=== PATIENT | male | born 1955 | race Caucasian/White ===

== ENCOUNTER 2016-08-19 17:24 | Inpatient (IN) | payer BC ==
[2016-08-19] MEDS ORDERED: NORCO 7.5/325 MG TAB PO PRN (18:20)
[2016-08-19] MEDS ORDERED: HumuLIN R SUBCUT PRN (18:20)
[2016-08-19] MEDS ORDERED: XANAX PO PRN (18:20)
--- NOTE | 2016-08-19 18:27 | DR.H&P ---
H&P - History & Physical for Day of: H&P Date: 08/19/16 - Chief Complaint Chief Complaint: INTRACTABLE BACK PAIN, LEFT LEG NUMBNESS, URINARY INCONTINENCE - Allergies Allergies/Adverse Reactions: Allergies Allergy/AdvReac Type Severity Reaction Status Date / Time No Known Drug Allergy Allergy Verified 08/19/16 18:17 - History of Present Illness History of Present Illness: 60 WM DIRECT ADMIT FROM DR RITTER OFFICE AFTER PRESENTING WITH CO LLE NUMBNESS AND URINARY INCONTINENCE. PT WAS DIAGNOSED EARLIER THIS WEEK WITH SHINGLES AND STARTED ON GABAPENTIN. PT STATES NUMBNESS ONSET AFTER GABAPENTIN, BUT HASNT TAKEN MED IN 3 DAYS. PT HAS BEEN AT HOME MORE SITTING LAYING IN BED COULD HAVE LOWER BACK FLARED UP. PT HAS PMH OF HTN, DM, OA. PLAN TO ADMIT FOR MRI, AND PAIN CONTROL, BP AND BS CONTROL - Past Medical History Past Medical History: Arthritis, Diabetes, GERD, Hypertension - Social History Does patient currently use any type of tobacco product: No Have you used tobacco products in the last 12 months: No Type of Tobacco Use: None Does any household member use tobacco: No Alcohol Use: None Drug Use: None - Review of Systems Constitutional: No Symptoms Reported Eyes: No Symptoms Reported ENT: No Symptoms Reported Respiratory: No Symptoms Reported Cardiovascular: No Symptoms Reported Gastrointestinal: No Symptoms Reported Genitourinary: Incontinence Musculoskeletal: Back Pain, Leg Pain Skin: Rash (SHINGLES TO LEFT FLANK) Neurological: Numbness (LLE) - Physical Exam Vital Signs: Temperature 97.7 F Pulse Rate [Right Radial] 82 Respiratory Rate 20 Blood Pressure [Right Arm] 142/86 O2 Sat by Pulse Oximetry 96 Oriented: Normal Eyes: Normal Ear: Normal Nose: Normal Throat: Normal Respiratory: Clear Throughout Cardiovascular: Normal : Normal Auscultation: Bowel Sounds: Normal Palpation: Normal Tenderness: Normal Skin: Rash (VESICULAR RASH TO LEFT MID ABD, WITH ERYTHEMATOUS BASE) Musculoskeletal: Back:Lumbar, Motor Deficit, Sensory Deficit (LLE) Psychiatric: Normal Mood Description: Calm Speech Pattern: Clear, Appropriate - Assessment/Plan (1) Lumbar degenerative disc disease Status: Acute Plan: WITH NUMBNESS TO LLE, URINARY INCONTINENCE- NEW FINDINGS. PAIN CONTROL R/ O [facility] U[facility]ENT MRI LSPINE (2) Paresthesia and pain of extremity Status: Acute Plan: US LLE, LOVENOX, BP AND BS CONTROL (3) Urinary incontinence Qualifiers: Urinary Incontinence type: U Status: Acute Plan: UA/UC (4) Herpes zoster Qualifiers: Herpes zoster complications: H Herpes zoster neurologic complication detail : H Herpes zoster ocular complication detail: H Status: Acute Plan: PAIN CONTROL (5) Diabetes Qualifiers: Diabetes mellitus type: D Diabetes mellitus complication status: D Diabetes mellitus complication detail: D Diabetic retinopathy severity: D Proliferative retinopathy type: P Diabetes mellitus macular edema: D Diabetes mellitus custodial insulin use: D Laterality: L Chronic kidney disease stage: C Status: Acute (6) Hypertension Qualifiers: Hypertension type: H Status: Acute Plan: SSI
[2016-08-19 18:48] LABS: BASOPHILS # (AUTO) 0.1 X10^3/uL (0.0-0.1); BASOPHILS % (AUTO) 1.1 % (0.2-1.0); EOSINOPHILS # (AUTO) 0.1 x10^3/uL (0.0-0.2); EOSINOPHILS % (AUTO) 1.8 % (0.9-2.9); HEMATOCRIT 41.2 % (42.0-54.0); HEMOGLOBIN 14.7 g/dL (13.5-18.0); LYMPHOCYTES # (AUTO) 2.4 X10^3/uL (1.3-2.9); LYMPHOCYTES % (AUTO) 37.2 % (21.0-51.0); MEAN CORPUSCULAR HEMOGLOBIN 29.5 pg (27.0-34.0); MEAN CORPUSCULAR HGB CONC 35.6 g/dL (33.0-35.0); MEAN CORPUSCULAR VOLUME 82.9 fL (80.0-100.0); MONOCYTES # (AUTO) 0.5 x10^3/uL (0.3-0.8); MONOCYTES % (AUTO) 8.5 % (0.0-13.0); NEUTROPHILS # (AUTO) 3.3 x10^3/uL (2.2-4.8); NEUTROPHILS % (AUTO) 51.4 % (42.0-75.0); PLATELET COUNT 170 X10^3/uL (150.0-450.0); RED BLOOD COUNT 4.97 X10^6/uL (4.7-6.0); WHITE BLOOD COUNT 6.3 X10^3/uL (3.6-10.0)
[2016-08-19 19:02] LABS: ALANINE AMINOTRANSFERASE 42 Units/L (12-78); ALBUMIN 3.3 g/dL (3.4-5.0); ALKALINE PHOSPHATASE 80 Units/L (46-116); ASPARTATE AMINO TRANSFERASE 19 Units/L (15-37); BLOOD UREA NITROGEN 21 mg/dL (7-18); CALCIUM 8.7 mg/dL (8.5-10.1); CARBON DIOXIDE 29.9 mmol/L (21-32); CHLORIDE 102 mmol/L (98-107); COR CA(FOR HYPOALB) 9.3 mg/dL (8.5-10.1); COR NA(FOR HYPERGLY) 142 mmol/L (136-145); GLUCOSE 273 mg/dL (65-99); SODIUM 138 mmol/L (136-145); eGFR BLACK RACES > 60 (>60); eGFR NON BLACK RACES > 60 (>60)
[2016-08-19] MEDS ORDERED: SNACK - Diabetic Appropriate PO SCH (20:00)
[2016-08-19] MEDS ORDERED: COLACE CAP 100 MG PO SCH (21:00)
--- NOTE | 2016-08-19 21:06 | MRI ---
MR lumbar spine without contrast Indication: Left leg numbness in urinary incontinence. Technique: Multiplanar multi sequence imaging through the lumbar spine without contrast. Findings: Sir cecal in shows minimal dependent subcutaneous edema without other STIR signal abnormal ity. Bone marrow signal is normal. Right renal cyst noted incidentally. Otherwise the soft tissues o f the visualized abdomen and pelvis are grossly normal on limited images provided. Findings: There is multilevel disk desiccation. The conus terminates normally at the pedicle level o f L1. T12-L1: No significant stenosis. L1-L2: Minimal facet arthropathy without significant stenosis. L2-L3: Mild facet arthropathy without significant stenosis. L3-L4: Minimal circumferential disk bulge and mild facet arthropathy without high-grade stenosis. Mi nimal left neural foramen and minimal right neural foramen narrowing noted. L4-L5: Circumferential disk bulge and moderate facet arthropathy urine noted. Minimal bilateral neur al foramen narrowing noted no high-grade spinal canal narrowing seen. L5-S1: Disc bulge and moderate facet arthropathy are noted. No high-grade stenosis seen. Minimal lef t neural foramen narrowing and minimal right neural foramen narrowing seen. Impression: 1. No high-grade spinal canal stenosis. 2. Minimal bilateral neural foraminal narrowing due to small disc bulges and mild facet arthropathy at L3 through S1 bilaterally. No high-grade neural foramen stenosis or nerve root impingement seen. Reported By:
[2016-08-19] MEDS ORDERED: FLEXERIL TAB 10 MG PO PRN (21:45)
[2016-08-19] MEDS: SOLU-Medrol 40 MG VIAL IVP SCH (22:10)
--- NOTE | 2016-08-19 22:40 | VAS ---
Ultrasound left lower extremity venous Doppler Ed Indication: Left lower extremity of the numbness. Technique: Dynamic grayscale and Doppler imaging through the left lower extremity veins with abebe patel techniques and spectral analysis. Findings: The left common femoral vein, superficial femoral vein throughout its length and popliteal vein are patent compressible with normal respiratory phasicity. Impression: No left lower extremity deep vein thrombosis. Reported By:
[2016-08-19] MEDS: LOVENOX INJ 40 MG SYR SC SCH (22:49)
[2016-08-19] MEDS: HumuLIN R SUBCUT PRN (22:51)
[2016-08-20 04:23] LABS: BILIRUBIN,URINE NEGATIVE (NEGATIVE); BLOOD/HEMOGLOBIN,URINE 1+ (NEGATIVE); GLUCOSE, URINE 4+ (NEGATIVE); KETONES,URINE 2+ (NEGATIVE); LEUKOCYTE ESTERASE ,URINE NEGATIVE (NEGATIVE); NITRITES,URINE NEGATIVE (NEGATIVE); PROTEIN,URINE NEGATIVE (NEGATIVE); UROBILINOGEN,URINE 1+ (NORMAL)
[2016-08-20 04:52] LABS: APPEARANCE,URINE CLEAR (CLEAR); BACTERIA,URINE NEGATIVE /HPF (NEGATIVE); COLOR,URINE YELLOW (YELLOW); SQUAMOUS EPITHELIAL CELL,UR RARE /HPF (NEGATIVE)
[2016-08-20] MEDS: HumuLIN R SUBCUT PRN (05:59)
[2016-08-20 06:57] LABS: ALANINE AMINOTRANSFERASE 40 Units/L (12-78); ALBUMIN 3.3 g/dL (3.4-5.0); ALKALINE PHOSPHATASE 80 Units/L (46-116); ASPARTATE AMINO TRANSFERASE 20 Units/L (15-37); BLOOD UREA NITROGEN 22 mg/dL (7-18); CALCIUM 8.7 mg/dL (8.5-10.1); CARBON DIOXIDE 25.4 mmol/L (21-32); CHLORIDE 101 mmol/L (98-107); COR CA(FOR HYPOALB) 9.3 mg/dL (8.5-10.1); COR NA(FOR HYPERGLY) 141 mmol/L (136-145); CREATININE 1.14 mg/dL (0.70-1.30); GLUCOSE 287 mg/dL (65-99); SODIUM 137 mmol/L (136-145); TOTAL PROTEIN 6.9 g/dL (6.4-8.2); eGFR BLACK RACES > 60 (>60); eGFR NON BLACK RACES > 60 (>60)
[2016-08-20 07:01] LABS: BASOPHILS % (AUTO) 0.6 % (0.2-1.0); EOSINOPHILS % (AUTO) 0.2 % (0.9-2.9); HEMATOCRIT 40.1 % (42.0-54.0); HEMOGLOBIN 14.2 g/dL (13.5-18.0); LYMPHOCYTES # (AUTO) 1.1 X10^3/uL (1.3-2.9); LYMPHOCYTES % (AUTO) 18.9 % (21.0-51.0); MEAN CORPUSCULAR HEMOGLOBIN 29.8 pg (27.0-34.0); MEAN CORPUSCULAR HGB CONC 35.3 g/dL (33.0-35.0); MEAN CORPUSCULAR VOLUME 84.5 fL (80.0-100.0); MEAN PLATELET VOLUME 8.8 fL (7.4-11.0); MONOCYTES # (AUTO) 0.2 x10^3/uL (0.3-0.8); MONOCYTES % (AUTO) 2.7 % (0.0-13.0); NEUTROPHILS # (AUTO) 4.7 x10^3/uL (2.2-4.8); NEUTROPHILS % (AUTO) 77.6 % (42.0-75.0); PLATELET COUNT 167 X10^3/uL (150.0-450.0); RED BLOOD COUNT 4.75 X10^6/uL (4.7-6.0); RED CELL DISTRIBUTION WIDTH 12.9 % (11.6-16.5); WHITE BLOOD COUNT 6.1 X10^3/uL (3.6-10.0)
[2016-08-20 09:02] VITALS: BMI 38.9
[2016-08-20] MEDS: LOVENOX INJ 40 MG SYR SC SCH (09:59)
[2016-08-20] MEDS: SOLU-Medrol 40 MG VIAL IVP SCH (10:00)
[2016-08-20 11:42] VITALS: BP 129/75
== END 2016-08-20 11:35 | disposition home or self-care (01) | DRG 92 ==
LOC: MED/SURG 17:24
PROVIDERS: ADMIT Internal Medicine; ATTEND Internal Medicine
DX: R20.0 Anesthesia of skin (principal); M54.89 Other dorsalgia; N39.498 Other specified urinary incontinence; I10 Essential (primary) hypertension; E11.9 Type 2 diabetes mellitus without complications; M13.89 Other specified arthritis, multiple sites; K21.9 Gastro-esophageal reflux disease without esophagitis; M51.36 Other intervertebral disc degeneration, lumbar region; B02.8 Zoster with other complications; T42.6X5A Adverse effect of other antiepileptic and sedative-hypnotic drugs, initial encounter; Y92.89 Other specified places as the place of occurrence of the external cause
CPT/HCPCS: 36415; 72148; 80053; 81001; 85025; 85610; 85730; 93971; A4222; J1650; J1815; J2920